=== PATIENT | female | born 1960 | race Caucasian/White ===

== ENCOUNTER 2020-06-03 09:43 | Outpatient (CLI) | payer OTHER, SELFPAY ==
--- NOTE | ~2020-06-03 | CT_ITS ---
EXAMINATION: CT chest wo con DATE: 06/03/2020 10:11 INDICATION: Solitary pulmonary nodule TECHNIQUE: Computed tomography (CT) of the chest was performed without intravenous contrast. The dose -length product (DLP) was 134.21 mGy-cm. Automated exposure control and iterative reconstruction tech [place] were employed. COMPARISON: 05/11/2012 FINDINGS: Stable right upper lobe nodules measuring up to 3 mm are consistent with old granulomatous disease. No suspicious pulmonary nodules are identified. The lungs are free of acute opacities. There is no pleural effusion or pneumothorax. A calcified subpleural nodule of the right lower lobe is als o consistent with old granulomatous disease. No pathologically enlarged thoracic lymph nodes are iden tified. The heart size is normal. Calcified coronary artery atherosclerosis is noted. IMPRESSION: 1. Stable pulmonary nodules, consistent with old granulomatous disease. No suspicious pulmonary nodul e identified. Reviewed, dictated and finalized at location A. IMPRESSION: 1. Stable pulmonary nodules, consistent with old granulomatous disease. No susp icious pulmonary nodule identified.
== END 2020-06-03 09:44 | disposition home or self-care (01) ==
DX: R91.8 Other nonspecific abnormal finding of lung field (principal)
CPT/HCPCS: 71250

== ENCOUNTER 2021-06-10 08:11 | Outpatient (CLI) | payer OTHER, SELFPAY ==
--- NOTE | ~2021-06-10 | CT_ITS ---
EXAMINATION: CT diagnostic chest wo con DATE: 06/10/2021 08:38 INDICATION: Solitary pulmonary nodule TECHNIQUE: Computed tomography (CT) of the chest was performed without intravenous contrast. The dose -length product (DLP) was 141.14 mGy-cm. Automated exposure control and iterative reconstruction tech nique were employed. COMPARISON: 06/03/2020 FINDINGS: Again noted are stable right upper lobe nodules measuring up to 3 mm, consistent with old g ranulomatous disease. No new pulmonary nodule is identified. There is mild atelectasis. The lungs are free of focal airspace opacities. There is no pleural effusion or pneumothorax. No pathologically en larged thoracic lymph nodes are identified. The heart size is normal. Calcified coronary artery ather osclerosis is noted. There is mild thoracic spondylosis. IMPRESSION: 1. Stable pulmonary nodules, consistent with old granulomatous disease. Reviewed, dictated and finalized at location B.
== END 2021-06-10 08:12 | disposition home or self-care (01) ==
PROVIDERS: PCP Family Medicine; Visit Provider Family Medicine
DX: R91.8 Other nonspecific abnormal finding of lung field (principal)
CPT/HCPCS: 71250